=== PATIENT | male | born 1980 | race Caucasian/White ===

== ENCOUNTER 2020-09-14 18:02 | Outpatient (REF) | payer MEDICARE, MEDICAID, SELFPAY | END 2020-09-14 18:03 | disposition home or self-care (01) | LOC: HO.MRI 18:02 | PROVIDERS: PCP Internal Medicine; Visit Provider Psychiatry & Neurology Neurology | DX: Z13.89 Encounter for screening for other disorder (principal) ==

== ENCOUNTER 2020-11-21 08:29 | Outpatient (REF) | payer MEDICARE, MEDICAID, SELFPAY ==
--- NOTE | ~2020-11-21 | MR_ITS ---
EXAMINATION: MRI OF THE BRAIN WITHOUT CONTRAST; MR ANGIOGRAPHY OF THE BRAIN WITHOUT CONTRAST. CLINICAL INFORMATION: 40-year-old with intractable migraines and right-sided vision loss. COMPARISON: 01/21/2018 MRI. MRI BRAIN TECHNIQUE: Multiplanar multisequence MR imaging of the brain was done without IV contrast. FINDINGS: Brain Volume: Unremarkable and unchanged. Structural: Prominent CSF space posterior to the cerebellar vermis again noted stable in size and configuration which may reflect either an atypical sotero cisterna magna or an arachnoid cyst, which measures 3 cm maximum transaxial dimension. Brain and Meninges: A few scattered subcortical white matter T2 hyperintensities are seen in the frontal lobes bilaterally stable in appearance, which are nonspecific findings. DWI imaging demonstrates no restricted diffusion. Specifically, there is no evidence for recent or acute infarct. Gradient echo imaging demonstrates no evidence for hemorrhage, hemosiderin staining or abnormal mineral deposition. Ventricles and Subarachnoid Spaces: The ventricular system is within normal limits, stable in appearance without hydrocephalus. Orbital Structures: The visualized orbital structures are grossly unremarkable within the limitations of the study. Vascular: Signal voids are noted in the visualized major intracranial vessels. Sinuses and Osseous Structures: There are probable retention cysts in the right maxillary sinus stable in appearance. Mild mucosal thickening in the ethmoid complex is similar to previous exam. Craniocervical junction is intact. Osseous marrow signal intensity is unremarkable and unchanged. MRA BRAIN TECHNIQUE: 3-D [id number] MR angiography of the intracranial circulation was done. FINDINGS: There are some limitations related to motion artifact. Intracranial internal carotid arteries are normal in caliber without segmental occlusion or significant focal stenosis. There are some artifacts which partially obscure the vertical petrous segment of the left ICA. The ophthalmic artery origins are visualized bilaterally and appear within normal limits. The right posterior communicating artery is visualized and appears within normal limits. Both M1 segments and the M2 branches are within normal limits in appearance. The left A1 segment is relatively hypoplastic. The right A1 segment is dominant. There is most likely a normal variant to A1-A2 junctions with a relatively small right A2 segment arising proximally and a normal-sized left A2 segment. The intracranial vertebral arteries are normal in caliber with the left being dominant. The posterior inferior cerebellar artery origins are visualized and appear unremarkable. The basilar artery is normal in caliber and configuration. The superior cerebellar and posterior cerebral arteries are patent and normal in caliber. No aneurysms or high flow vascular malformations are identified and there is no evidence for significant focal intracranial arterial stenosis or segmental occlusion. MR/MR head/brain wo con IMPRESSION: 1. 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 2. Question of a 3 cm arachnoid cyst versus atypical sotero cisterna magna in the posterior fossa unchanged in appearance. 3. No evidence for intracranial aneurysm or high flow vascular malformation and no evidence for segmental occlusion or significant focal stenosis within the limitations of the exam.
== END 2020-11-21 08:30 | disposition home or self-care (01) ==
LOC: HO.MRI 08:29
PROVIDERS: Visit Provider Psychiatry & Neurology Neurology
DX: G43.819 Other migraine, intractable, without status migrainosus (principal); H54.7 Unspecified visual loss
CPT/HCPCS: 70544; 70551

== ENCOUNTER 2021-08-06 19:20 | Outpatient (REF) | payer MEDICARE, MEDICAID, SELFPAY ==
--- NOTE | ~2021-08-06 | MR_ITS ---
EXAMINATION: MR SHOULDER WITHOUT CONTRAST, RIGHT CLINICAL INFORMATION: Right shoulder pain. Evaluate for rotator cuff tendon tear. Labral repair and decompression over 10 years ago. COMPARISON: None TECHNIQUE: MRI of the shoulder without contrast was performed on a high-field scanner. FINDINGS: ROTATOR CUFF: Intact. No muscle atrophy or fatty infiltration. BICEPS: Normal. CORACOACROMIAL ARCH: The undersurface of the acromion is minimally curved with no subacromial spur. Mild acromioclavicular osteoarthritis. LABRUM/CAPSULE: Postsurgical change at the anterosuperior labrum. No displaced labral tear. Intact joint capsule. GLENOHUMERAL JOINT/MARROW: Mild medial humeral head and glenoid articular cartilage thinning and signal heterogeneity with tiny marginal osteophytes. MR/MR shoulder RT wo con IMPRESSION: 1. Intact rotator cuff tendons. 2. Postsurgical change of the anterosuperior labrum. No displaced labral tear. 3. Mild acromioclavicular osteoarthritis and minimal glenohumeral osteoarthritis.
== END 2021-08-06 19:21 | disposition home or self-care (01) ==
LOC: HO.MRI 19:20
PROVIDERS: Visit Provider Physician Assistant Surgical
DX: M25.511 Pain in right shoulder (principal)
CPT/HCPCS: 73221